=== PATIENT | female | born 1985 | race Caucasian/White ===

== ENCOUNTER 2022-03-19 19:22 | Emergency (ER) | payer BC ==
[~2022-03-19] VITALS: Ht 162.6 cm; Wt 56.2 kg
[2022-03-19 19:32] VITALS: BP_SYST 125
--- NOTE | 2022-03-19 19:32 | NUR ---
Pt placed to ER Tent 1 with . Pt from home with c/o generalized weaness, cough and SOB x 3 days. Pt states that she recently tested positive for COVID per home rapid test. SPO2 100%, no respiratory distress noted.
--- NOTE | 2022-03-19 19:50 | NUR ---
ED DR. LUNA AT BEDSIDE, EXAMINING PATIENT.
--- NOTE | 2022-03-19 19:50 | NUR ---
Nora drummond in ED - 03/19/22 at 2003 by [id number] ER at bedside examining patient.
[2022-03-19] MEDS ORDERED: DEC4 PO (20:13)
[2022-03-19] MEDS ORDERED: ALBU8.5H8 INH (20:13)
[2022-03-19] MEDS ORDERED: NIRM1TAB PO (20:13)
[2022-03-19 20:20] VITALS: BP_SYST 120
--- NOTE | 2022-03-19 20:20 | NUR ---
Patient given written and verbal discharge instructions and verbalizes understanding. ER MD discussed with patient the results and treatment provided. Patient in stable condition. ID arm band removed. Rx of Albuterol, Decadron, Paxlovid given. Patient educated on pain management and to follow up with PMD. Pain Scale 0/10. Opportunity for questions provided and answered. Medication side effect fact sheet provided.
== END 2022-03-19 20:20 | disposition home or self-care (01) ==
LOC: SED 19:22
DX: U07.1 COVID-19 (principal); Z79.899 Other long term (current) drug therapy
CPT/HCPCS: 71045; 99283

== ENCOUNTER 2022-04-17 09:34 | Emergency (ER) | payer BC ==
[~2022-04-17] VITALS: Ht 162.6 cm; Wt 55.8 kg
[~2022-04-17 09:34] MED LIST: ALBU8.5H8 INH; DEC4 PO; NIRM1TAB PO
[2022-04-17 09:49] VITALS: BP_SYST 119
--- NOTE | 2022-04-17 09:50 | NUR ---
Patient to ER bed 04 for evaluation. Side rails up. Report given to
--- NOTE | 2022-04-17 10:18 | NUR ---
DR BELTRAN AT BEDSIDE EXAMINING THE PATIENT.
--- NOTE | 2022-04-17 12:10 | NUR ---
PT HAVING ULTRASOUND AT THIS HOUR.
--- NOTE | 2022-04-17 13:02 | NUR ---
BROUGHT PT BACK TO ROOM 4.
--- NOTE | 2022-04-17 13:14 | NUR ---
TAKEN PATIENT TO XRAY DEPT FOR KUB
--- NOTE | 2022-04-17 13:20 | NUR ---
PT RETURNED TO HER ROOM.
--- NOTE | 2022-04-17 14:35 | NUR ---
PT DISCHARGED HOME BY DR BELTRAN. INSTRUCTIONS GIVEN.
== END 2022-04-17 14:35 | disposition home or self-care (01) ==
LOC: SED 09:34
DX: R10.2 Pelvic and perineal pain (principal)
CPT/HCPCS: 74018; 76856-TC; 99284